=== PATIENT | female | born 1985 | race Caucasian/White ===

== ENCOUNTER → 2018-04-14 | Outpatient (CLI) | payer BC ==
[~2018-04-14] MED LIST: ADVAIR 250/501 EA INH; ALBUTEROL0.09 MG/A2 INH; ATIVAN0.5 MG PO; BIRTH CONTROL1 EAC1 PO; PROTONIX40 MG PO; SYNTHROID0.025 MG PO
[2018-04-15 07:10] LABS: HEPATITIS B SURFACE AG Negative (Negative); HEPATITIS C VIRUS ANTIBODY <0.1 s/co (0.0-0.9)
== END | disposition home or self-care (01) ==
LOC: LAB 16:24
PROVIDERS: Dentist General Practice
DX: Z77.21 Contact with and (suspected) exposure to potentially hazardous body fluids (principal)